=== PATIENT | female | born 1980 | race African-American/Black ===

== ENCOUNTER 2019-07-12 17:45 | Emergency (ER) | payer OTHER, BC ==
[~2019-07-12] VITALS: Ht 167.6 cm; Wt 57.6 kg
[2019-07-12 17:51] VITALS: BP 134/89
[2019-07-12] MEDS ORDERED: LIDOCAINE 1%-EPI 1:100,000 20 ML VIAL ONE (18:04)
== END 2019-07-12 19:02 | disposition home or self-care (01) ==
LOC: ER 17:52
DX: S61.512A Laceration without foreign body of left wrist, initial encounter (principal); Z91.018 Allergy to other foods; Z88.9 Allergy status to unspecified drugs, medicaments and biological substances; W01.0XXA Fall on same level from slipping, tripping and stumbling without subsequent striking against object, initial encounter; Y93.89 Activity, other specified; Y92.89 Other specified places as the place of occurrence of the external cause; Y99.8 Other external cause status
CPT/HCPCS: 12002; 99283; A6403; J3490

== ENCOUNTER 2020-02-25 13:36 | Inpatient (IN) | payer BC, OTHER ==
[~2020-02-25] VITALS: Ht 167.6 cm; Wt 55.3 kg
--- NOTE | 2020-02-25 14:05 | NUR ---
CAME IN FOR DIFFUSE ABDOMINAL PAIN, NAUSEA, VOMITING AND CONSTIPATION X 5 DAYS, TO ER BED 9, HOOKED TO MONITOR, CHANGED TO HOSP GOWN, WARM BLANKET PROVIDED, PATIENT AAO x 4, BREATHING EVEN AND UNLABORED, AWAITING MD HILARIO.
--- NOTE | 2020-02-25 14:23 | NUR ---
DR CORRAL AT BEDSIDE FOR EVAL
[2020-02-25] MEDS ORDERED: ONDANSETRON HCL/PF 4 MG/2 ML VIAL IVP ONE (14:30)
[2020-02-25] MEDS ORDERED: KETOROLAC TROMETHAMINE INJ 30 MG/ML VIAL IV ONE (14:30)
[2020-02-25] MEDS ORDERED: IV NS 0.9% 1,000 ML BAG IV ONE (14:30)
[2020-02-25 14:41] LABS: BILIRUBIN,URINE Negative (NEGATIVE); BLOOD, URINE Moderate Ery/uL (NEGATIVE); COLOR,URINE Yellow (YELLOW); KETONES,URINE 80 (NEGATIVE); LEUKOCYTE ESTERASE ,URINE Negative (NEGATIVE); NITRITE, URINE Negative (NEGATIVE); PH,URINE 7.5 (5.0-8.0); PROTEIN,URINE 30 mg/dl (NEGATIVE); UGLUCOSE Negative (NEGATIVE); UROBILINOGEN,URINE 0.2 EU/dL (0.2)
[2020-02-25 14:46] LABS: APPEARANCE,URINE CLOUDY (CLEAR)
[2020-02-25 14:47] LABS: BACTERIA,URINE Few /HPF (None Seen); MUCUS,URINE Moderate /LPF (None Seen); RBC,URINE 40-60 /HPF (0-2); SQUAMOUS EPITHELIAL CELL,UR Few /HPF (None Seen); WBC,URINE 0-2 /HPF (0-3)
[2020-02-25] MEDS ORDERED: ONDANSETRON HCL/PF 4 MG/2 ML VIAL ONE (14:47)
[2020-02-25 15:11] LABS: BASOPHILS % (AUTO) 0.3 % (0.0-2.0); HEMATOCRIT 35 % (33-45); HEMOGLOBIN 11.3 g/dL (11.5-14.8); LYMPHOCYTES # (AUTO) 1.1 /CMM (0.8-4.8); LYMPHOCYTES % (AUTO) 14.2 % (20.0-44.0); MEAN CORPUSCULAR HGB CONC 33 g/dl (31.0-36.0); MEAN CORPUSCULAR VOLUME 97 fL (82-100); MONOCYTES # (AUTO) 0.4 /CMM (0.1-1.30); NEUTROPHILS # (AUTO) 6.2 /CMM (1.8-8.9); NEUTROPHILS % (AUTO) 80.5 % (43.0-81.0); PLATELET COUNT (AUTO) 257 /CMM (150-450); RED BLOOD CELL COUNT(AUTO) 3.61 MIL/uL (4.0-5.2); WHITE BLOOD COUNT (AUTO) 7.7 K/uL (4.3-11.0)
[2020-02-25 15:17] LABS: CALCIUM, SERUM 9.2 mg/dL (8.5-10.1); CREATININE 0.9 mg/dL (0.6-1.3); POTASSIUM 3.7 mmol/L (3.5-5.1)
[2020-02-25 15:30] LABS: ALBUMIN 4.3 g/dL (3.4-5.0); BILIRUBIN,DIRECT 0.1 mg/dL (0.0-0.2); BILIRUBIN,TOTAL 0.5 mg/dL (0.2-1.0); TOTAL PROTEIN, SERUM 7.9 g/dL (6.4-8.2)
[2020-02-25] MEDS ORDERED: IV NS 0.9% 250 ML IV ONE (15:34)
[2020-02-25] MEDS ORDERED: IOHEXOL-300 100 ML VIAL IV ONE (15:34)
[2020-02-25] MEDS ORDERED: KETOROLAC TROMETHAMINE 15 MG/ML VIAL ONE (15:37)
--- NOTE | 2020-02-25 15:37 | NUR ---
wheeled out via rney for ct scan
--- NOTE | 2020-02-25 16:42 | NUR ---
patient in bed asleep, easily arousable by voice. hooked to yaya, vss. will continue to monitor accordingly.
--- NOTE | 2020-02-25 18:35 | NUR ---
PATIENT IN BED AWAKE, HOOKED TO MONITOR, VSS. STATES 6/10 PS ABDOMINAL PAIN. MADE MD AWARE. WILL CONTINUE TO MONITOR ACCORDINGLY.
--- NOTE | 2020-02-25 18:43 | NUR ---
KAY SWAB DONE AND SENT TO LAB
--- NOTE | 2020-02-25 19:08 | NUR ---
REPORT GIVEN TO DIOR GARCIA FOR JENNIFER
--- NOTE | 2020-02-25 19:43 | NUR ---
PT ASLEEP. VITALS STABLE. PROVIDED WITH BLANKET.
--- NOTE | 2020-02-25 20:16 | NUR ---
PAGED DR. JEWELL (GI PROGRAM DIR)
--- NOTE | 2020-02-25 20:44 | NUR ---
BED ASSIGNMENT 201
--- NOTE | 2020-02-25 21:11 | NUR ---
REPORT GIVEN TO FER GARCIA FOR JENNIFER; PT WILL BE TRANSPORTED TO 2ND FLOOR
--- NOTE | 2020-02-25 21:20 | NUR ---
PT TRANSFERED PER [facility]
[2020-02-25 21:30] VITALS: BP 126/70
--- NOTE | 2020-02-25 21:30 | NUR ---
MS GARCIA ADMITTING NOTES PATIENT ARRIVED ON UNIT VIA WHEELCHAIR, ACCOMPANIED BY ER STAFF; REPORT RECEIVED AT BEDSIDE FROM JOSE KELLY; PATIENT AMBULATORY; A/OX4; BREATHING EVEN AND UNLABORED; NO SOB NOTED; PATIENT TOLERATING ROOM AIR WELL; PATIENT DENIES ANY MEDICAL HX; NO RECENT FALLS; L AC#20 INTACT AND PATENT; FLUSHING WELL; NO S/S OF REDNESS OR INFILTRATION NOTED; SKIN ASSESSMENT DONE, NO WOUNDS NOTED; PATIENT BELONGINGS CHECKED; PATIENT ORIENTED TO UNIT AND STAFF; SAFETY PRECAUTIONS IMPLEMENTED; BED LOCKED IN LOW POSITION; SIDE RAILSX2; CALL LIGHT WITHIN REACH; WILL CONT TO MONITOR Addendum: 02/25/20 at 2308 by KIRTI SHIRLEY RN AWAITING MD ORDERS
[2020-02-25] MEDS: LACTULOSE 10 G/15 ML UDC (PYXIS) PO SCH (23:27)
[2020-02-25] MEDS: IV NS 0.9% 1,000 ML IV PRN (23:28)
[2020-02-25] MEDS ORDERED: ACETAMINOPHEN 325 MG TABLET PO PRN (23:30)
[2020-02-25] MEDS ORDERED: ZOLPIDEM TARTRATE 5 MG TABLET PO PRN (23:30)
[2020-02-25] MEDS ORDERED: Z GUARD REMEDY 2 OZ OINT TP PRN (23:30)
[2020-02-25] MEDS ORDERED: HYOSCYAMINE SULFATE 0.125 MG TAB.SUBL SL PRN (23:30)
[2020-02-25] MEDS ORDERED: ONDANSETRON HCL/PF 4 MG/2 ML VIAL IVP PRN (23:30)
[2020-02-25] MEDS ORDERED: BISACODYL SUPP (10 MG) 10 MG/SUPP.RECT SUPP.RECT RC PRN (23:30)
[2020-02-26] MEDS: LACTULOSE 10 G/15 ML UDC (PYXIS) PO SCH ×2 (05:11→11:39)
[2020-02-26 06:28] LABS: BASOPHILS % (AUTO) 0.4 % (0.0-2.0); EOSINOPHILS % (AUTO) 0.9 % (0.0-6.0); HEMATOCRIT 28 % (33-45); HEMOGLOBIN 9.3 g/dL (11.5-14.8); LYMPHOCYTES # (AUTO) 1.4 /CMM (0.8-4.8); LYMPHOCYTES % (AUTO) 29.7 % (20.0-44.0); MEAN CORPUSCULAR HGB CONC 33 g/dl (31.0-36.0); MEAN CORPUSCULAR VOLUME 94 fL (82-100); MONOCYTES # (AUTO) 0.4 /CMM (0.1-1.30); MONOCYTES % (AUTO) 7.7 % (2.0-12.0); NEUTROPHILS # (AUTO) 2.9 /CMM (1.8-8.9); NEUTROPHILS % (AUTO) 61.3 % (43.0-81.0); PLATELET COUNT (AUTO) 248 /CMM (150-450); RED BLOOD CELL COUNT(AUTO) 3.02 MIL/uL (4.0-5.2); WHITE BLOOD COUNT (AUTO) 4.8 K/uL (4.3-11.0)
--- NOTE | 2020-02-26 06:32 | NUR ---
MS RN CLOSING NOTES PATIENT RESTING IN BED COMFORTABLY; A/OX4; BREATHING EVEN AND UNLABORED; TOLERATING ROOM AIR WELL; NO SOB NOTED; NO DISTRESS NOTED; PATIENT ABLE TO MAKE NEEDS KNOWN; R AC # 20 INTACT AND PATENT, FLUSHING WELL; TOLERATING IVF WELL; NO S/S OF REDNESS OR INFILTRATION NOTED; ALL NEEDS RENDERED; SAFETY PRECAUTIONS IMPLEMENTED; BED LOCKED IN LOW POSITION; SIDE RAILSX2; CALL LIGHT WITHIN REACH; WILL ENDORSE JENNIFER TO ONCOMING SHIFT
[2020-02-26 07:09] LABS: THYROID STIMULATING HORMONE 3.003 uIU/mL (0.358-3.74)
[2020-02-26 07:13] LABS: CALCIUM, SERUM 8.1 mg/dL (8.5-10.1); CREATININE 0.7 mg/dL (0.6-1.3); PHOSPHORUS 3.7 mg/dL (2.5-4.9); POTASSIUM 3.5 mmol/L (3.5-5.1)
--- NOTE | 2020-02-26 07:15 | NUR ---
MS RN NOTES PATIENT RECEIVED IN BED RESTING COMFORTABLY, ALERT AND ORIENTED X 4. ON ROOM AIR, WITH NO RESPIRATORY DISTRESS PRESENT AT THIS TIME, AND WITH EVEN NON-LABORED BREATHING. IV ACCESS INTACT AND PATENT ON RIGHT AC 20 GAUGE CURRENTLY INFUSING NORMAL SALINE AT 75ml/hr. PROVIDED COMFORT MEASURES TO PATIENT. SAFETY PRECAUTIONS IMPLEMENTED WITH BED LOCKED, BILATERAL SIDE RAILS UP, BED IN THE LOWEST POSITION AND CALL LIGHT WITHIN EASY REACH OF THE PATIENT. WILL CONTINUE TO MONITOR PATIENT.
[2020-02-26] MEDS: PANTOPRAZOLE 40 MG TABLET.DR PO SCH (07:23)
[2020-02-26 08:00] VITALS: BP 119/65
--- NOTE | 2020-02-26 08:37 | NUR ---
MS RN NOTES PATIENT COMPLAINING OF ABDOMINAL PAIN. PROVIDED COMFORT MEASURES TO PATIENT, APPLIED HEAT PACKS AND WARM BLANKET PROVIDED. ADMINISTERED PRN TYLENOL 650mg PO ORDERED. WILL CONTINUE TO MONITOR PATIENT.
[2020-02-26] MEDS ORDERED: DIATR MEGLU/DIATRIZOATE SODIUM 120 ML BOTTLE (GASTROGRAPHIN) ONE (10:22)
[2020-02-26] MEDS ORDERED: MORPHINE SULFATE INJ 2 MG/ML DISP.SYRIN IV PRN (12:30)
[2020-02-26] MEDS: METOCLOPRAMIDE HCL 10 MG/2 ML VIAL IV SCH ×3 (12:46→23:46)
[2020-02-26] MEDS: IV NS 0.9% 1,000 ML IV PRN (12:46)
[2020-02-26] MEDS ORDERED: POLYETHYLENE GLYCOL 3350 17 GM POWD.PACK PO PRN (13:30)
[2020-02-26 16:00] VITALS: BP 112/72
--- NOTE | 2020-02-26 18:50 | NUR ---
MS RN NOTES PATIENT IN BED RESTING COMFORTABLY. ON ROOM AIR WITH NO SIGNS OF RESPIRATORY DISTRESS AT THIS, WITH NO SOB NOTED AND WITH EVEN NON-LABORED. PATIENT SKIN KEPT CLEAN AND DRY. IV ACCESS INTACT AND PATENT, INFUSING NORMAL SALINE AT 75ml/hr. PROVIDED COMFORT MEASURES TO PATIENT AND MET ALL OF PATIENT'S NEEDS. SAFETY PRECAUTIONS IMPLEMENTED WITH BED LOCKED, BILATERAL SIDE RAILS UP, BED IN THE LOWEST POSITION, AND CALL LIGHT WITHIN EASY REACH OF THE PATIENT. WILL ENDORSE PLAN OF CARE TO UPCOMING NIGHTSHIFT NURSE.
--- NOTE | 2020-02-26 19:05 | NUR ---
rn ms notes received patient in bed sleeping but easily arousable , verbally responsive, alert and oriented x4, respirations even and unlabored with equal rise and fall of chest, denies any pain or discomfort at this time, iv site to right ac # 20 g intact and patent, no redness, no infiltration present, ivf running as ordered, oriented to staff and call light and kept within reach, safety precautions in place,low bed and locked, all needs attended at this time will continue to monitor and attend to needs.
[2020-02-26 20:00] VITALS: BP 106/65
[2020-02-26 20:19] VITALS: BP 109/65
[2020-02-27] MEDS: IV NS 0.9% 1,000 ML IV PRN (02:00)
[2020-02-27] MEDS: METOCLOPRAMIDE HCL 10 MG/2 ML VIAL IV SCH ×2 (05:29→12:00)
[2020-02-27 06:50] LABS: CALCIUM, SERUM 8.5 mg/dL (8.5-10.1); CREATININE 0.7 mg/dL (0.6-1.3); MAGNESIUM 1.9 mg/dL (1.8-2.4); PHOSPHORUS 3.4 mg/dL (2.5-4.9); POTASSIUM 3.3 mmol/L (3.5-5.1)
[2020-02-27 06:57] LABS: BASOPHILS % (AUTO) 0.5 % (0.0-2.0); HEMATOCRIT 28 % (33-45); LYMPHOCYTES # (AUTO) 1.3 /CMM (0.8-4.8); LYMPHOCYTES % (AUTO) 33.3 % (20.0-44.0); MEAN CORPUSCULAR HGB CONC 32 g/dl (31.0-36.0); MEAN CORPUSCULAR VOLUME 94 fL (82-100); MONOCYTES # (AUTO) 0.3 /CMM (0.1-1.30); MONOCYTES % (AUTO) 8.1 % (2.0-12.0); NEUTROPHILS # (AUTO) 2.3 /CMM (1.8-8.9); NEUTROPHILS % (AUTO) 56.1 % (43.0-81.0); PLATELET COUNT (AUTO) 232 /CMM (150-450); RED BLOOD CELL COUNT(AUTO) 2.97 MIL/uL (4.0-5.2)
--- NOTE | 2020-02-27 07:00 | NUR ---
rn ms closing notes patient in bed awake, verbally responsive, alert and oriented x4, respirations even and unlabored with equal rise and fall of chest, denies any pain or discomfort at this time, iv site to right ac # 20 g intact and patent, no redness, no infiltration present, ivf running as ordered,call light kept within reach, safety precautions in place,low bed and locked, all needs attended at this time will continue to monitor and attend to needs and endorse to next shift, toileting and fluids offered throughout shift, denied n ay abd. pain throughout shift.
[2020-02-27] MEDS: PANTOPRAZOLE 40 MG TABLET.DR PO SCH ×2 (07:30→08:30)
[2020-02-27 08:00] VITALS: BP 108/68
--- NOTE | 2020-02-27 08:00 | NUR ---
rn notes received patient in the bed a/o x3, sitting monica of the bed. patient has no acute respiratory distress, v/s stable, refused pain. patient state " I would like to go home". patient tolerated breakfast well. patient ambulatory self care, call light within to reach. refused am Protonix po. patient self care. ambulatory , infusing right ac ns at 75 ml/hr intact. safety precaution maintained all the time.
[2020-02-27] MEDS ORDERED: POTASSIUM CHLORIDE 20 MEQ TAB.PRT.SR PO SCH (11:00)
[2020-02-27] MEDS ORDERED: ACET-907 PO (12:55)
[2020-02-27] MEDS ORDERED: METO-295 PO (12:55)
--- NOTE | 2020-02-27 14:17 | NUR ---
SPEECH THERAPIST TECHNICIAN PLANING PATIENT DISCHARGE AT THIS TIME GOING HOME SELF CARE. PATIENT STABLE, REFUSED PAIN. MED RECONCILIATION AND DISCHARGE ORDERS REVIEWED AND EXPLAINED TO THE PATIENT. PATIENT VERBALIZED UNDERSTANDING. PRESCRIPTION HANDED TO THE PATIENT. PATIENT WILL FOLLOW PCP, AND OUTPATIENT GI. BELONGING WITH THE PATIENT, SIGN PAPERWORK. ESCORTED PATIENT TO THE LOBBY FOR SAFETY. PATIENT WARP TESTER BY THE FRIEND NAME SIL,PHONE # [phone].
== END 2020-02-27 14:20 | disposition home or self-care (01) | DRG 392 ==
LOC: ER 13:36 → MEDSG2 20:59
DX: A08.4 Viral intestinal infection, unspecified (principal); Z90.710 Acquired absence of both cervix and uterus; Z91.018 Allergy to other foods; D25.9 Leiomyoma of uterus, unspecified; D64.9 Anemia, unspecified; K59.00 Constipation, unspecified; E87.6 Hypokalemia; N94.89 Other specified conditions associated with female genital organs and menstrual cycle
CPT/HCPCS: 36415; 74250-TC; 80048-TC; 80061-TC; 80076-TC; 81000-TC; 83690-TC; 83735-TC; 84100-TC; 84443-TC; 84702-TC; 85025-TC; 85730-TC; 87081-TC; 87086-TC; G0378; J1885; J2405; J2765; J7030; J7050; Q9963; Q9967